=== PATIENT | female | born 1970 | race Caucasian/White ===

== ENCOUNTER 2024-08-02 19:59 | Emergency (ER) | payer MEDICAID ==
[~2024-08-02] VITALS: Ht 157.5 cm; Wt 94.8 kg
[2024-08-02] MEDS: diphenhydrAMINE 50 MG/ML VIAL IVP ONE (20:15)
[2024-08-02] MEDS: FAMOTIDINE 20 MG/2 ML VIAL IVP ONE (20:16)
[2024-08-02] MEDS: methylPREDNISolone SS 125 MG/2 ML VIAL IVP ONE (20:18)
[2024-08-02 20:20] VITALS: BP 144/93; PULSE 75; RESP 20; TEMP 98.3; O2SAT 96
[2024-08-02] MEDS ORDERED: PRED20TA5 PO (22:04)
[2024-08-02] MEDS ORDERED: DIPH25TA53 PO (22:04)
[2024-08-02] MEDS ORDERED: FAMO-90 PO (22:04)
[2024-08-02] MEDS ORDERED: EPIN1KIT31 IM (22:04)
[2024-08-02 22:30] VITALS: O2SAT 96
== END 2024-08-02 22:30 | disposition home or self-care (01) ==
LOC: MED 19:59
DX: T78.40XA Allergy, unspecified, initial encounter (principal); R03.0 Elevated blood-pressure reading, without diagnosis of hypertension; Z79.899 Other long term (current) drug therapy; X58.XXXA Exposure to other specified factors, initial encounter
CPT/HCPCS: 96374; 96375; 99284; J1200; J2919; J3490